=== PATIENT | female | born 1960 | race Asian ===

== ENCOUNTER 2020-01-20 08:22 | Emergency (ER) | payer OTHER ==
[~2020-01-20] VITALS: Ht 162.6 cm; Wt 72.7 kg
[2020-01-20 09:34] VITALS: BP 146/83
== END 2020-01-20 10:18 | disposition home or self-care (01) ==
LOC: EMS 08:29
DX: R10.10 Upper abdominal pain, unspecified (principal); R11.10 Vomiting, unspecified
CPT/HCPCS: 93005

== ENCOUNTER 2020-03-31 15:38 | Emergency (ER) | payer OTHER ==
[~2020-03-31] VITALS: Ht 154.9 cm; Wt 63.6 kg
[2020-03-31] MEDS ORDERED: IBUPROFEN 400 MG TABLET PO ONE (17:30)
[2020-03-31] MEDS ORDERED: LIDOCAINE 5% TRANSDERMAL PATCH TD ONE (17:30)
[2020-03-31 18:44] VITALS: BP 131/65
== END 2020-03-31 18:49 | disposition home or self-care (01) ==
LOC: EMS 15:38
DX: M71.21 Synovial cyst of popliteal space [Baker], right knee (principal); E78.00 Pure hypercholesterolemia, unspecified
CPT/HCPCS: 93971; 73562-TC; Z7502; Z7610

== ENCOUNTER 2025-04-26 07:10 | Emergency (ER) | payer OTHER ==
[~2025-04-26] VITALS: Ht 154.9 cm; Wt 68.2 kg
[2025-04-26 07:13] VITALS: TEMP 97.7
[2025-04-26] MEDS ORDERED: LOSA-381 PO (07:16)
[2025-04-26] MEDS ORDERED: LOVA20TA73 PO (07:16)
[2025-04-26 07:47] LABS: PLATELET COUNT (AUTO) 350 K/uL (150-450); RED BLOOD CELL COUNT(AUTO) 4.52 MIL/uL (4.00-5.20); RED CELL DISTRIBUTION WIDTH 13.9 % (11.5-14.5); WHITE BLOOD COUNT (AUTO) 5.3 K/uL (4.5-11.0)
[2025-04-26 07:50] LABS: CALCIUM, TOTAL 9.0 mg/dL (8.8-10.5); CREATININE 0.61 mg/dL (0.60-1.30); GLOMERULAR FILTR. RATE CALC > 60 mL/min (>60); GLUCOSE,RANDOM 101 mg/dL (70-110); SODIUM SERUM 139 mmol/L (136-145); UREA NITROGEN, BLOOD 9 mg/dL (7-18)
[2025-04-26 07:55] LABS: ASPARTATE AMINOTRANSFERASE 17.0 U/L (15-37); CREATINE KINASE, TOTAL ONLY 126.0 U/L (26-192); TOTAL PROTEIN, SERUM 7.7 g/dL (6.4-8.2)
[2025-04-26] MEDS: ONDANSETRON 4 MG TABLET PO ONE (07:55)
[2025-04-26 07:57] LABS: COVID AG,FIA SOURCE NASAL SWAB
[2025-04-26 08:02] LABS: TROPONIN I-HIGH SENSITIVITY 9 ng/L (<51)
[2025-04-26 08:22] LABS: INFLUENZA TYPE A NEGATIVE FOR TYPE A (NEGATIVE); INFLUENZA TYPE B POSITIVE FOR TYPE B (NEGATIVE); SARS-COV2 (COVID) ANTIGEN,FIA Negative (Negative)
[2025-04-26 09:20] VITALS: BP 149/91; PULSE 73; RESP 18; O2SAT 98
[2025-04-26] MEDS ORDERED: IBUP-1492 PO (09:33)
[2025-04-26] MEDS ORDERED: ACET-3385 PO (09:33)
== END 2025-04-26 09:43 | disposition home or self-care (01) ==
LOC: EMS 07:13
DX: R51.9 Headache, unspecified (principal); I10 Essential (primary) hypertension; R11.0 Nausea; J11.1 Influenza due to unidentified influenza virus with other respiratory manifestations; E78.00 Pure hypercholesterolemia, unspecified; Z79.899 Other long term (current) drug therapy; Z20.822 Contact with and (suspected) exposure to COVID-19
CPT/HCPCS: 99285; 70450; 71045; 87426; 80048; 80076; 82550; 83880; 84484; 85025; 87804; 36415; 93005; Q0162

== ENCOUNTER 2025-08-03 09:14 | Emergency (ER) | payer OTHER ==
[~2025-08-03] VITALS: Ht 154.9 cm; Wt 67.3 kg
[~2025-08-03 09:14] MED LIST: ACET-3385 PO; IBUP-1492 PO; LOSA-381 PO; LOVA20TA73 PO; METR500 PO
[2025-08-03 09:16] VITALS: TEMP 98.6
[2025-08-03 09:51] LABS: APPEARANCE,URINE TURBID (CLEAR); GLUCOSE, URINE (UA) NEGATIVE (NEGATIVE); LEUKOCYTE ESTERASE ,URINE MODERATE (NEGATIVE); NITRATE,URINE NEGATIVE (NEGATIVE); OCCULT BLOOD,URINE LARGE (NEGATIVE); SPECIFIC GRAVITIY, URINE 1.027 (1.003-1.030)
[2025-08-03 10:12] LABS: SULFOSALICYLIC ACID,URINE 2+ (Negative)
[2025-08-03 10:15] LABS: SQUAMOUS EPITHELIAL CELL,UR Rare /LPF (None Seen)
[2025-08-03 12:45] VITALS: BP 128/72; PULSE 82; RESP 16; O2SAT 99
[2025-08-03] MEDS ORDERED: CEPH-558 PO (13:43)
== END 2025-08-03 14:03 | disposition home or self-care (01) ==
LOC: EMS 09:18
DX: R31.9 Hematuria, unspecified (principal); E78.00 Pure hypercholesterolemia, unspecified; I10 Essential (primary) hypertension; Z79.899 Other long term (current) drug therapy
CPT/HCPCS: 74176; 81001; 81002; 99284; Z7502